=== PATIENT | female | born 1940 ===

== ENCOUNTER 2017-10-13 07:21 | Outpatient (CLI) | payer OTHER ==
[~2017-10-13 07:21] MED LIST: CIPRO500 MG PO; LOSARTAN-HCTZ1 EAC2; METFORMIN HCL500 MG
== END 2017-10-13 07:24 | disposition home or self-care (01) ==
LOC: SONOGRAMA 07:21
DX: E04.1 Nontoxic single thyroid nodule (principal)

== ENCOUNTER 2020-02-14 16:57 | Emergency (ER) | payer OTHER ==
[~2020-02-14] VITALS: Ht 154.9 cm; Wt 68.0 kg
== END 2020-02-14 23:55 | disposition home or self-care (01) ==
LOC: ER 16:57
DX: N39.0 Urinary tract infection, site not specified (principal); R10.2 Pelvic and perineal pain

== ENCOUNTER 2020-02-16 11:04 | Emergency (ER) | payer OTHER ==
[~2020-02-16] VITALS: Ht 154.9 cm; Wt 64.4 kg
[2020-02-16] MEDS ORDERED: MACRODANTIN100 M1 (11:14)
[2020-02-16] MEDS ORDERED: CLONAZEPAM0.5 MG (11:15)
[2020-02-16] MEDS ORDERED: SYNTHROID88 MCG (11:15)
[2020-02-16] MEDS ORDERED: PERIACTIN (11:16)
[2020-02-16] MEDS ORDERED: HYDROCHLOROTH12.5 MG (11:16)
[2020-02-16] MEDS ORDERED: WELLBUTRIN SR100 MG (11:16)
== END 2020-02-16 17:22 | disposition home or self-care (01) ==
LOC: ER 11:04
DX: N39.0 Urinary tract infection, site not specified (principal); R33.8 Other retention of urine

== ENCOUNTER 2020-02-19 10:34 | Emergency (ER) | payer OTHER ==
[~2020-02-19] VITALS: Ht 154.9 cm; Wt 64.4 kg
[~2020-02-19 10:34] MED LIST changes: +CLONAZEPAM0.5 MG; +HYDROCHLOROTH12.5 MG; +MACRODANTIN100 M1; +PERIACTIN; +SYNTHROID88 MCG; +WELLBUTRIN SR100 MG
[2020-02-19] MEDS ORDERED: SERTRALINE HCL50 MG PO (11:14)
== END 2020-02-19 15:58 | disposition home or self-care (01) ==
LOC: ER 10:34
DX: N39.0 Urinary tract infection, site not specified (principal)